=== PATIENT | male | born 1950 | race American Indian/Alaskan Native ===

== ENCOUNTER 2017-02-05 10:45 | Day surgery (SDC) | payer MEDICARE, BC, OTHER ==
[~2017-02-05 10:45] MED LIST: Lactated Ringers 1,000 ML IV SCH
--- NOTE | 2017-02-05 11:28 | PCM.PREANE ---
Preanesthetic Assessment - Anesthesia/Transfusion/Family Hx Anesthesia History: Prior Anesthesia Reaction Family History of Anesthesia Reaction: No Transfusion History: Prior Transfusion Without Reaction Intubation History: Unknown - Review of Systems General: No Symptoms Pulmonary: No Symptoms Cardiovascular: No Symptoms Gastrointestinal: No Symptoms Neurological: No Symptoms Other: Reports: None - Physical Assessment O2 Sat by Pulse Oximetry: 96 Respiratory Rate: 16 Vital Signs: Last Vital Signs Temp 36.2 C 02/05/17 11:02 Pulse 91 02/05/17 11:02 Resp 16 02/05/17 11:02 BP 126/84 02/05/17 11:02 Pulse Ox 96 02/05/17 11:02 Height: 1.65 m Weight: 88.451 kg ASA Class: 2 Mental Status: Alert & Oriented x3 Airway Class: Mallampati = 2 Dentition: Reports: Bridge (2 teeth upper front) Thyro-Mental Finger Breadths: 3 Mouth Opening Finger Breadths: 2 ROM/Head Extension: Full Lungs: Clear to Auscultation, Normal Respiratory Effort Cardiovascular: Regular Rate, Regular Rhythm - Allergies Allergies/Adverse Reactions: Allergies Allergy/AdvReac Type Severity Reaction Status Date / Time No Known Allergies Allergy Verified 02/03/17 11:08 - Blood Blood Available: No - Anesthesia Plan Pre-Op Medication Ordered: None - Acknowledgements Anesthesia Type Planned: MAC Pt an Appropriate Candidate for the Planned Anesthesia: Yes Alternatives and Risks of Anesthesia Discussed w Pt/Guardian: Yes Pt/Guardian Understands and Agrees with Anesthesia Plan: Yes PreAnesthesia Questionnaire HEENT History: Reports: Glaucoma Other HEENT History: wears glasses, has 2 upper permanent false teeth Cardiovascular History: Reports: Afib, High Cholesterol, Hypertension, HI, Pacemaker (replaced about a year and a half) Other Cardiovascular History: HI in 1999, no current chest pain, SOB...recently taking Lasix for leg swelling Other Respiratory History: states has had lungs drained before Gastrointestinal History: Reports: GERD Endocrine/Metabolic History: Reports: Hypothyroidism, Obesity/BMI 30+ Hematologic History: Reports: Blood Transfusion(s) - Infectious Disease History Infectious Disease History: Reports: Hepatitis C - Past Surgical History Head Surgeries/Procedures: Reports: None Cardiovascular Surgical History: Reports: AICD, Coronary Artery Bypass, Pacer Other Cardiovascular Surgeries/Procedures: CABG, 4 vessel in late , has implanted pacemaker/defibrillator placed 10 years ago (replaced a year and a half ago) - SUBSTANCE USE Smoking Status *Q: Current Every Day Smoker Tobacco Use Within Last Twelve Months: Cigarettes Days Per Week of Alcohol Use: 0 Recreational Drug Use History: No - HOME MEDS Home Medications: Home Meds Carvedilol 25 mg PO BID 08/07/13 [History] Diltiazem [Tiazac] 180 mg PO BID 08/07/13 [History] Levothyroxine [Sythroid] 100 mcg PO DAILY 08/07/13 [History] Omeprazole 20 mg PO BID 08/23/14 [History] atorvaSTATin [Lipitor] 20 mg PO DAILY 08/23/14 [History] Nitroglycerin [Nitrostat] 0.4 mg SL Q5M PRN 05/06/15 [History] Warfarin [Coumadin] 0 mg PO DAILY 05/06/15 [History] Fluticasone Propionate [Flonase Allergy Relief] 2 spray NASBOTH ASDIRECTED PRN 02/03/17 [History] Furosemide 40 mg PO ASDIRECTED 02/03/17 [History] Ipratropium/Albuterol Sulfate [Combivent Respimat Inhal [place]] 1 puff INH QID PRN 02/03/17 [History] Latanoprost [Xalatan 0.005% Ophth Soln] 1 drop EYEBOTH DAILY 02/03/17 [History] Potassium Chloride 8 meq PO DAILY 02/03/17 [History] Zolpidem [Ambien] 10 mg PO BEDTIME PRN 02/03/17 [History] - CURRENT (IN HOUSE) MEDS Current Meds: Current Medications Lactated Ringer's (Ringers, Lactated) 1,000 mls @ 125 mls/hr IV ASDIRECTED ARABELLA Last Admin: 02/05/17 11:09 Dose: 125 mls/hr
[2017-02-05] MEDS ORDERED: Lidocaine 2% 5 ML SDV ONE (11:31)
[2017-02-05] MEDS ORDERED: Midazolam 1 MG/ML 2 ML SDV ONE (11:32)
[2017-02-05] MEDS ORDERED: fentaNYL 100 MCG/2 ML SDV ONE (11:32)
[2017-02-05] MEDS ORDERED: Propofol 200 MG/20 ML SDV ONE ×2 (11:32→12:24)
[2017-02-05] MEDS ORDERED: ePHEDrine 50 MG/ML SDV ONE (12:25)
[2017-02-05] MEDS ORDERED: Lactated Ringers 1,000 ML IV SCH (12:45)
--- NOTE | 2017-02-05 12:48 | PCM.OPNOTE ---
- General Post-Op/Procedure Note Date of Surgery/Procedure: 02/05/17 Operative Procedure(s): Esophagogastroduodenoscopy with biopsy. Colonoscopy with cold ascending colon polypectomy. Pre Op Diagnosis: Hemoccult-positive stool. Personal history of colon polyps. Post-Op Diagnosis: Acute gastritis. Ascending colon polyp. Anesthesia Technique: MAC (ASA III) Primary Surgeon: Jim Dumont Condition: Good Free Text/Narrative:: Dictation [id number] CPT CODE [id number]
--- NOTE | 2017-02-05 13:12 | PCM.POSTAN ---
POST ANESTHESIA ASSESSMENT - MENTAL STATUS Mental Status: Alert - VITAL SIGNS Pulse Rate: 70 SaO2: 98 Resp Rate: 16 Blood Pressure: 110/72 - RESPIRATORY Respiratory Status: Respiratory Rate WNL - CARDIOVASCULAR CV Status: Pulse Rate WNL - GASTROINTESTINAL GI Status: No Symptoms - POST OP HYDRATION Hydration Status: Adequate & Stable
--- NOTE | 2017-02-05 13:27 | OR ---
SURGEON: Jim Dumont M.D. DATE OF PROCEDURE: 02/05/2017 OPERATION PERFORMED: Esophagogastroduodenoscopy with biopsy. ANESTHESIA: MAC. ASA CLASSIFICATION: III. PREOPERATIVE DIAGNOSIS: Hemoccult positive stool. POSTOPERATIVE DIAGNOSIS: Acute gastritis without ulceration. DESCRIPTION OF PROCEDURE: The patient was taken to the endoscopy room and positioned on the endoscopy table in the supine position. Time-out was called for appropriate identification of the patient and procedure. Monitored anesthesia care was provided. The bite-block was placed between the patient's teeth. The gastroscope was inserted into the mouth and advanced without difficulty through the esophagus and stomach into the duodenum where examination was carried out in a retrograde fashion. The duodenum shows no acute inflammatory changes or ulcerations. The stomach does show fairly significant acute gastritis. No ulcerations were seen. Antral biopsies were obtained to look for the presence of Helicobacter pylori. The gastroscope was retroflexed to visualize the proximal stomach. I did not see any acute ulcerations. No tumors were identified. The gastroscope was then straightened and slowly withdrawn. The greater and lesser curvatures were carefully visualized and no ulcerations were noted. The GE junction was well defined. The patient does have a small hiatal hernia. No acute erosions were noted within the esophagus. The esophagus demonstrated good contractility. The vocal cords were visualized as the scope was withdrawn and noted to move symmetrically. The gastroscope was then removed with the patient having tolerated the procedure well. Following colonoscopy, he was taken to recovery room in stable condition. ERWIN / CAITLIN /[id number]
[2017-02-05 13:30] VITALS: BP 119/84
--- NOTE | 2017-02-05 13:31 | PCM48HPAN ---
Post Anesthesia Note - EVALUATION WITHIN 48HRS OF ANESTHETIC Vital Signs in Normal Range: Yes Patient Participated in Evaluation: Yes Respiratory Function Stable: Yes Airway Patent: Yes Cardiovascular Function Stable: Yes Hydration Status Stable: Yes Pain Control Satisfactory: Yes Nausea and Vomiting Control Satisfactory: Yes Mental Status Recovered: Yes
--- NOTE | 2017-02-05 13:37 | OR ---
SURGEON: Jim Dumont M.D. DATE OF PROCEDURE: 02/05/2017 OPERATION PERFORMED: Colonoscopy with cold ascending colon polypectomy. ANESTHESIA: MAC. ASA CLASSIFICATION: III. PREOPERATIVE DIAGNOSIS: Hemoccult positive stool. POSTOPERATIVE DIAGNOSIS: Ascending colon polyp. DESCRIPTION OF PROCEDURE: With the patient having completed esophagogastroduodenoscopy with biopsy, he was now positioned in the left lateral decubitus position. The colonoscope was inserted into the rectum and advanced with minimal difficulty to the cecum. The cecum was identified by internal landmarks and external pressure. The colonoscope was retroflexed to visualize the ascending colon from below, then straightened and slowly withdrawn. One polyp was encountered in the ascending colon and this was removed with multiple bites of the cold biopsy forceps. The remainder of the ascending colon, hepatic flexure, transverse colon, splenic flexure, descending colon, sigmoid colon, and rectum were well visualized. No other tumors or polyps were identified. There were no angiodysplastic changes. No evidence of inflammatory bowel disease. The colonoscope was withdrawn to the rectum and retroflexed to visualize the anal orifice from above. No tumors or polyps were seen, and there were no acute hemorrhoidal changes. The colonoscope was then straightened, the rectum aspirated, and the colonoscope removed. The patient tolerated the procedure well and was taken to recovery room in stable condition. ERWIN TUCKER /[id number]
== END 2017-02-05 13:35 | disposition home or self-care (01) ==
LOC: MW.SDS 10:45
PROVIDERS: ATTEND Surgery
DX: K29.50 Unspecified chronic gastritis without bleeding (principal); D12.2 Benign neoplasm of ascending colon; K44.9 Diaphragmatic hernia without obstruction or gangrene; M19.90 Unspecified osteoarthritis, unspecified site; I25.2 Old myocardial infarction; I25.10 Atherosclerotic heart disease of native coronary artery without angina pectoris; I10 Essential (primary) hypertension; K21.9 Gastro-esophageal reflux disease without esophagitis; F17.210 Nicotine dependence, cigarettes, uncomplicated; I48.91 Unspecified atrial fibrillation; E78.00 Pure hypercholesterolemia, unspecified; E03.9 Hypothyroidism, unspecified; E66.9 Obesity, unspecified; Z79.01 Long term (current) use of anticoagulants; Z79.899 Other long term (current) drug therapy; Z95.1 Presence of aortocoronary bypass graft; Z95.810 Presence of automatic (implantable) cardiac defibrillator; Z68.32 Body mass index [BMI] 32.0-32.9, adult
CPT/HCPCS: 43239; 45380; 88305; 88312; J2250; J3010; J7120; 00810; J2704

== ENCOUNTER 2017-10-27 21:39 | Emergency (ER) | payer MEDICARE, BC, OTHER ==
[2017-10-27] MEDS ORDERED: Sodium Chloride 0.9% 2.5 ML Syringe FLUSH PRN (22:00)
[2017-10-27] MEDS ORDERED: Sodium Chloride 0.9% 10 ML Syringe FLUSH PRN (22:00)
--- NOTE | 2017-10-27 22:07 | EDM.PDOC ---
ED HPI GENERAL MEDICAL PROBLEM - General Chief Complaint: Neuro Symptoms/Deficits Stated Complaint: NUMB ARMS/FACE Time Seen by Provider: 10/27/17 21:44 - History of Present Illness INITIAL COMMENTS - FREE TEXT/NARRATIVE: HISTORY AND PHYSICAL: History of present illness: The patient is a 67-year-old male with a history of coronary artery disease with CABG in 1999, ICD placement for A. fib,hypercholesterolemia hypothyroidism pulmonary disease presents with complaints of a tingling-like sensation from mid humerus to hands bilaterally and around his cheeks and mouth for the last 4- 5 days. He says it is not pins and needles and it is not complete numbness but it is an odd sensation that is discomforting but not painful. It is bilateral every time it occurs. He says it has been episodic for the last 4-5 days but has been constant since Wednesday, over 24 hours. He has no weakness in his extremities and there is no involvement of his shoulders neck trunk or legs. The patient follows with Dr. Elena of cardiology in [place] and Dr. Clifton at [facility]. He has not spoken to either of these providers about the symptoms. The patient denies any chest pain and does say he has intermittent shortness of breath that is not new or different. He's had no fevers chills abdominal pain vomiting urinary complaints or diarrhea. Patient tells me he intermittently will have lower extremity swelling and he takes medication and it improves. He currently has no discomfort or swelling in his legs. He did not complain of any swelling in his upper extremities and has no neck or back pain. When the patient has had these episodes in the past as well as this evening he doesn't feel lightheaded or dizzy he has no chest discomfort or shortness of breath no head neck or back pain and no other associated symptoms. The patient has not had any recent head or neck trauma Review of systems: As per history of present illness and below otherwise all systems reviewed and negative. Past medical history: As per history of present illness and as reviewed below otherwise noncontributory. Surgical history: As per history of present illness and as reviewed below otherwise noncontributory. Social history: No reported history of drug or alcohol abuse. Family history: As per history of present illness and as reviewed below otherwise noncontributory. Physical exam: General: Well-developed well-nourished man who is nontoxic and speaking clearly and easily in the ED. He ambulated into the ED without assistance. Vital signs are noted by me HEENT: Atraumatic, normocephalic, pupils reactive, negative for conjunctival pallor or scleral icterus, mucous membranes moist, throat clear, neck supple, nontender, trachea midline. Lungs: Clear to auscultation with some coarse breath sounds in the bases bilaterally no wheezing or stridor or work of breathing, breath sounds equal bilaterally, chest nontender. Heart: S1S2, regular rate and rhythm no overt murmurs and ICD is noted in the left upper chest wall. Abdomen: Soft, nondistended, nontender. Negative for masses or hepatosplenomegaly. NABS Pelvis: Stable nontender. Genitourinary: Deferred. Rectal: Deferred. Extremities: Atraumatic, negative for cords or calf pain. Neurovascular unremarkable. No pedal edema or leg asymmetry Neuro: Awake, alert, oriented. Cranial nerves II through XII unremarkable. Cerebellum unremarkable. Motor and sensory unremarkable throughout. Exam nonfocal. Skin: No diaphoresis no evidence of any overt rashes or lesions and turgor is normal Diagnostics: EKG CBC CMP INR troponin magnesium level UA chest x-ray CT scan of the head Therapeutics: IV O2 monitor He is aware of all testing results as his at bedside and he was offered observation admission and declines. He was strongly advised to follow-up with his provider at [facility] and also to hold the next dose of Coumadin and discuss with his provider further dose adjusting and or follow-up. He is advised on reasons to return to the ED. Impression: Nonspecific paresthesias of bilateral upper extremities and midface, subacute, etiology unclear Definitive disposition and diagnosis as appropriate pending reevaluation and review of above. Treatments IN HOUSE CRA: Reports: EKG - Related Data Allergies Allergy/AdvReac Type Severity Reaction Status Date / Time No Known Allergies Allergy Verified 10/27/17 21:50 Home Meds: Home Meds Carvedilol 25 mg PO BID 08/07/13 [History] Diltiazem [Tiazac] 180 mg PO BID 08/07/13 [History] Levothyroxine [Sythroid] 100 mcg PO DAILY 08/07/13 [History] Omeprazole 20 mg PO BID 08/23/14 [History] atorvaSTATin [Lipitor] 20 mg PO DAILY 08/23/14 [History] Nitroglycerin [Nitrostat] 0.4 mg SL Q5M PRN 05/06/15 [History] Warfarin [Coumadin] 0 mg PO DAILY 05/06/15 [History] Fluticasone Propionate [Flonase Allergy Relief] 2 spray NASBOTH ASDIRECTED PRN 02/03/17 [History] Furosemide 40 mg PO ASDIRECTED 02/03/17 [History] Ipratropium/Albuterol Sulfate [Combivent Respimat Inhal [place]] 1 puff INH QID PRN 02/03/17 [History] Latanoprost [Xalatan 0.005% Ophth Soln] 1 drop EYEBOTH DAILY 02/03/17 [History] Potassium Chloride 8 meq PO DAILY 02/03/17 [History] Zolpidem [Ambien] 10 mg PO BEDTIME PRN 02/03/17 [History] Past Medical History HEENT History: Reports: Glaucoma Other HEENT History: wears glasses, has 2 upper permanent false teeth Cardiovascular History: Reports: Afib, High Cholesterol, Hypertension, [place], Pacemaker Other Cardiovascular History: heart attack in 1998 Respiratory History: Reports: COPD Other Respiratory History: on inhaler Gastrointestinal History: Reports: GERD Endocrine/Metabolic History: Reports: Hypothyroidism, Obesity/BMI 30+ Hematologic History: Reports: Blood Transfusion(s) - Infectious Disease History Infectious Disease History: Reports: Hepatitis C - Past Surgical History Head Surgeries/Procedures: Reports: None HEENT Surgical History: Reports: None Cardiovascular Surgical History: Reports: AICD, Coronary Artery Bypass, Pacer Other Cardiovascular Surgeries/Procedures: CABG, 4 vessel in late , has implanted pacemaker/defibrillator placed 2015 (revised 3x-last revised in 2009) Respiratory Surgical History: Reports: None GI Surgical History: Reports: None Endocrine Surgical History: Reports: None Social & Family History - Family History Family Medical History: Noncontributory Cardiac: Reports: Hypertension, [place], Other (See Below) Other Cardiac Family History: heart disease Endocrine/Metabolic: Reports: Diabetes, type II - Tobacco Use Smoking Status *Q: Current Some Day Smoker Years of Tobacco use: 15 Packs/Tins Daily: 0.1 - Caffeine Use Caffeine Use: Reports: None - Recreational Drug Use Recreational Drug Use: No ED ROS GENERAL - Review of Systems Review Of Systems: ROS reveals no pertinent complaints other than HPI. ED EXAM, GENERAL - Physical Exam Exam: See Below (See dictation) Course - Vital Signs Last Recorded V/S: Last Vital Signs Temp 36.4 C 10/27/17 21:46 Pulse 67 10/27/17 21:46 Resp 20 10/27/17 21:46 BP 130/81 10/27/17 21:46 Pulse Ox 96 10/27/17 21:46 - Orders/Labs/Meds Orders: Active Orders 24 hr Category Date Time Status Cardiac Monitoring [RC] . DIRECTED Care 10/27/17 21:57 Active EKG Documentation Completion [RC] STAT Care 10/27/17 21:57 Active Oxygen Therapy, ED [RC] ASDIRECTED Care 10/27/17 21:57 Active Pulse Oximetry [RC] ASDIRECTED Care 10/27/17 21:57 Active Chest 1V Frontal [CR] Stat Exams 10/27/17 22:00 Taken Head wo Cont [CT] Stat Exams 10/27/17 22:00 Taken UA W/MICROSCOPIC [URIN] Stat Lab 10/27/17 22:15 Ordered Sodium Chloride 0.9% [Saline Flush] Med 10/27/17 22:00 Active 10 ml FLUSH ASDIRECTED PRN Sodium Chloride 0.9% [Saline Flush] Med 10/27/17 22:00 Active 2.5 ml FLUSH ASDIRECTED PRN Saline Lock Insert [OM.PC] Stat Oth 10/27/17 21:57 Ordered Medication Orders Sodium Chloride (Saline Flush) 10 ml FLUSH ASDIRECTED PRN PRN Reason: Keep Vein Open Sodium Chloride (Saline Flush) 2.5 ml FLUSH ASDIRECTED PRN PRN Reason: Keep Vein Open Labs: Laboratory Tests 10/27/17 10/27/17 10/27/17 Range/Units 22:10 22:10 22:10 WBC 8.06 (4.0-11.0) K/uL RBC 4.98 (4.50-5.90) M/uL Hgb 15.4 (13.0-17.0) g/dL Hct 43.5 (38.0-50.0) % MCV 87.3 (80.0-98.0) fL MCH 30.9 (27.0-32.0) pg MCHC 35.4 (31.0-37.0) g/dL RDW Std Deviation 42.1 (28.0-62.0) fl RDW Coeff of Jenna 13 (11.0-15.0) % Plt Count 123 L (150-400) K/uL MPV 10.00 (7.40-12.00) fL Neut % (Auto) 52.8 (48.0-80.0) % Lymph % (Auto) 33.3 (16.0-40.0) % [place] % (Auto) 10.7 (0.0-15.0) % Eos % (Auto) 3.0 (0.0-7.0) % Baso % (Auto) 0.2 (0.0-1.5) % Neut # (Auto) 4.3 (1.4-5.7) K/uL Lymph # (Auto) 2.7 H (0.6-2.4) K/uL [place]ruff # (Auto) 0.9 H (0.0-0.8) K/uL Eos # (Auto) 0.2 (0.0-0.7) K/uL Baso # (Auto) 0.0 (0.0-0.1) K/uL Nucleated RBC % 0.0 /100WBC Nucleated RBCs # 0 K/uL INR 6.02 Sodium 136 (136-148) mmol/L Potassium 4.1 (3.5-5.1) mmol/L Chloride 102 (98-107) mmol/L Carbon Dioxide 26.2 (21.0-32.0) mmol/L BUN 15 (7.0-18.0) mg/dL Creatinine 1.2 (0.8-1.3) mg/dL Est Cr Clr Drug Dosing TNP Estimated GFR (MDRD) > 60.0 ml/min Glucose 102 (74-106) mg/dL Calcium 8.7 (8.5-10.1) mg/dL Magnesium 1.8 (1.8-2.4) mg/dL Total Bilirubin 0.4 (0.2-1.0) mg/dL AST 25 (15-37) IU/L ALT 28 (14-63) IU/L Alkaline Phosphatase 83 (46-116) U/L Troponin I < 0.050 (0.000-0.056) ng/mL Total Protein 7.3 (6.4-8.2) g/dL Albumin 3.3 L (3.4-5.0) g/dL Globulin 4.0 H (2.0-3.5) g/dL Albumin/Globulin Ratio 0.8 L (1.3-2.8) Urine Color Urine Appearance Urine pH (5.0-8.0) Ur Specific [place] (1.001-1.035) Urine Protein (NEGATIVE) mg/dL Urine Glucose (UA) (NEGATIVE) mg/dL Urine Ketones (NEGATIVE) mg/dL Urine Occult Blood (NEGATIVE) Urine Nitrite (NEGATIVE) Urine Bilirubin (NEGATIVE) Urine Urobilinogen (<2.0) EU/dL Ur Leukocyte Esterase (NEGATIVE) Urine RBC (0-2/HPF) Urine WBC (0-5/HPF) Ur Epithelial Cells (NONE-FEW) Urine Bacteria (NEGATIVE) Urine Mucus (NONE-MOD) 10/27/17 Range/Units 22:15 WBC (4.0-11.0) K/uL RBC (4.50-5.90) M/uL Hgb (13.0-17.0) g/dL Hct (38.0-50.0) % MCV (80.0-98.0) fL MCH (27.0-32.0) pg MCHC (31.0-37.0) g/dL RDW Std Deviation (28.0-62.0) fl RDW Coeff of Jenna (11.0-15.0) % Plt Count (150-400) K/uL MPV (7.40-12.00) fL Neut % (Auto) (48.0-80.0) % Lymph % (Auto) (16.0-40.0) % [place] % (Auto) (0.0-15.0) % Eos % (Auto) (0.0-7.0) % Baso % (Auto) (0.0-1.5) % Neut # (Auto) (1.4-5.7) K/uL Lymph # (Auto) (0.6-2.4) K/uL [place] # (Auto) (0.0-0.8) K/uL Eos # (Auto) (0.0-0.7) K/uL Baso # (Auto) (0.0-0.1) K/uL Nucleated RBC % /100WBC Nucleated RBCs # K/uL INR Sodium (136-148) mmol/L Potassium (3.5-5.1) mmol/L Chloride (98-107) mmol/L Carbon Dioxide (21.0-32.0) mmol/L BUN (7.0-18.0) mg/dL Creatinine (0.8-1.3) mg/dL Est Cr Clr Drug Dosing Estimated GFR (MDRD) ml/min Glucose (74-106) mg/dL Calcium (8.5-10.1) mg/dL Magnesium (1.8-2.4) mg/dL Total Bilirubin (0.2-1.0) mg/dL AST (15-37) IU/L ALT (14-63) IU/L Alkaline Phosphatase (46-116) U/L Troponin I (0.000-0.056) ng/mL Total Protein (6.4-8.2) g/dL Albumin (3.4-5.0) g/dL Globulin (2.0-3.5) g/dL Albumin/Globulin Ratio (1.3-2.8) Urine Color YELLOW Urine Appearance CLEAR Urine pH 6.0 (5.0-8.0) Ur Specific [place] >= 1.030 (1.001-1.035) Urine Protein NEGATIVE (NEGATIVE) mg/dL Urine Glucose (UA) NEGATIVE (NEGATIVE) mg/dL Urine Ketones NEGATIVE (NEGATIVE) mg/dL Urine Occult Blood NEGATIVE (NEGATIVE) Urine Nitrite NEGATIVE (NEGATIVE) Urine Bilirubin NEGATIVE (NEGATIVE) Urine Urobilinogen 1.0 (<2.0) EU/dL Ur Leukocyte Esterase NEGATIVE (NEGATIVE) Urine RBC 0-1 (0-2/HPF) Urine WBC 0-1 (0-5/HPF) Ur Epithelial Cells RARE (NONE-FEW) Urine Bacteria RARE (NEGATIVE) Urine Mucus LIGHT (NONE-MOD) Meds: Medications Generic Name Dose Route Start Last Admin Trade Name Freq PRN Reason Stop Dose Admin Sodium Chloride 10 ml 10/27/17 22:00 Saline Flush FLUSH ASDIRECTED PRN Keep Vein Open Sodium Chloride 2.5 ml 10/27/17 22:00 Saline Flush FLUSH ASDIRECTED PRN Keep Vein Open Departure - Departure Time of Disposition: 23:14 Disposition: Home, Self-Care 01 Condition: Good Clinical Impression: Paresthesias - Discharge Information Referrals: PCP,None [Primary Care Provider] - Forms: ED Department Discharge Additional Instructions: The following information is given to patients seen in the emergency department who are being discharged to home. This information is to outline your options for follow-up care. We provide all patients seen in our emergency department with a follow-up referral. The need for follow-up, as well as the timing and circumstances, are variable depending upon the specifics of your emergency department visit. If you don't have a primary care physician on staff, we will provide you with a referral. We always advise you to contact your personal physician following an emergency department visit to inform them of the circumstance of the visit and for follow-up with them and/or the need for any referrals to a consulting specialist. The emergency department will also refer you to a specialist when appropriate. This referral assures that you have the opportunity for followup care with a specialist. All of these measure are taken in an effort to provide you with optimal care, which includes your followup. Under all circumstances we always encourage you to contact your private physician who remains a resource for coordinating your care. When calling for followup care, please make the office aware that this follow-up is from your recent emergency room visit. If for any reason you are refused follow-up, please contact the [facility] emergency department at and ask to speak to the emergency department charge nurse. [facility] Primary care- Internal Medicine and Family [address] [address] Please call and follow-up with Dr. Clifton in the clinic as we discussed tomorrow for further testing and evaluation and hold your next dose of Coumadin. Bunny's discussed with Dr. Clifton further dosing adjustments of your Coumadin as your level is 6.02. Return to ER as needed and as discussed. - My Orders Last 24 Hours: My Active Orders 10/27/17 21:57 Cardiac Monitoring [RC] . DIRECTED EKG Documentation Completion [RC] STAT Oxygen Therapy, ED [RC] ASDIRECTED Pulse Oximetry [RC] ASDIRECTED Saline Lock Insert [OM.PC] Stat 10/27/17 22:00 Chest 1V Frontal [CR] Stat Head wo Cont [CT] Stat Sodium Chloride 0.9% [Saline Flush] 10 ml FLUSH ASDIRECTED PRN Sodium Chloride 0.9% [Saline Flush] 2.5 ml FLUSH ASDIRECTED PRN 10/27/17 22:15 UA W/MICROSCOPIC [URIN] Stat - Assessment/Plan Last 24 Hours: My Active Orders 10/27/17 21:57 Cardiac Monitoring [RC] . DIRECTED EKG Documentation Completion [RC] STAT Oxygen Therapy, ED [RC] ASDIRECTED Pulse Oximetry [RC] ASDIRECTED Saline Lock Insert [OM.PC] Stat 10/27/17 22:00 Chest 1V Frontal [CR] Stat Head wo Cont [CT] Stat Sodium Chloride 0.9% [Saline Flush] 10 ml FLUSH ASDIRECTED PRN Sodium Chloride 0.9% [Saline Flush] 2.5 ml FLUSH ASDIRECTED PRN 10/27/17 22:15 UA W/MICROSCOPIC [URIN] Stat
[2017-10-27 22:38] LABS: CHLORIDE,CL 102 mmol/L (98-107); SODIUM,NA 136 mmol/L (136-148)
[2017-10-27 23:35] VITALS: BP 105/74
--- NOTE | 2017-10-28 09:47 | CT ---
EXAM DATE: 10/27/17 PATIENT'S AGE: 67 Patient: NILO PIERRE Facility: [place], [place] Site . Site : 1950 Study: CT Head wo cont [id number]/18/2018 10:26:53 PM Ordering Physician: Tammy Oro Final Report: INDICATION: Patient states bilateral arm and facial tingling, numbness with shortness of breath TECHNIQUE: CT Head without i.v. contrast. CONTRAST: None COMPARISON: 10/08/2009 FINDINGS: CSF spaces: Unremarkable for age. Brain: No evidence of mass, acute infarction or hemorrhage is seen. No mass- effect or midline shift is seen. Mild diffuse cortical atrophy is noted. The brain parenchyma is otherwise normal in appearance with preservation of the dacosta -white matter junction. Calvarium: The visualized paranasal sinuses are well aerated. The mastoid air cells are clear. The visualized orbits are grossly unremarkable. The calvarium is unremarkable in appearance with no fractures identified. IMPRESSION: 1. No evidence of acute infarction, intracranial hemorrhage, or mass-effect seen. Please note that all CT scans at this facility use dose modulation, iterative reconstruction, and/or weight-based dosing when appropriate to reduce radiation dose to as low as reasonably achievable. Dictated by: De Estrada MD @ 10/27/2017 22:29:31 (Electronic Signature) Report Signed by Proxy. [facility] CENTERJud
--- NOTE | 2017-10-28 09:48 | CR ---
EXAM DATE: 10/27/17 PATIENT'S AGE: 67 Patient: NILO PIERRE Facility: [place], [place] Site . Site : 1950 Study: XRay Chest [id number]/18/2018 10:29:44 PM Ordering Physician: Tammy Oro Final Report: INDICATION: Bilateral upper and lower extremity numbness, tingling, some shortness of breath TECHNIQUE: Chest radiograph 1 view COMPARISON: 05/06/2015 FINDINGS: Mediastinum: Previous median sternotomy and coronary artery bypass grafting ( CABG) noted. The heart silhouette is normal in size and morphology. There is a left cardiac pacer present with leads in the right atrium and right ventricle. Lungs: Both lungs are unremarkable in appearance. No sign of pleural effusion seen. No pneumothorax is identified. Bones and soft tissue: Unremarkable for age. IMPRESSION: 1. No acute cardiopulmonary disease is seen. Dictated by De Estrada MD @ 10/27/2017 10:35:13 PM Dictated by: De Estrada MD @ 10/27/2017 22:35:15 (Electronic Signature) Report Signed by Proxy. COOKIE
== END 2017-10-27 23:36 | disposition home or self-care (01) ==
LOC: MW.ED 21:39
DX: R20.2 Paresthesia of skin (principal); I10 Essential (primary) hypertension; E03.9 Hypothyroidism, unspecified; J44.9 Chronic obstructive pulmonary disease, unspecified; I48.91 Unspecified atrial fibrillation; I25.2 Old myocardial infarction; F17.210 Nicotine dependence, cigarettes, uncomplicated; I25.10 Atherosclerotic heart disease of native coronary artery without angina pectoris; Z95.1 Presence of aortocoronary bypass graft; Z79.01 Long term (current) use of anticoagulants; Z79.899 Other long term (current) drug therapy
CPT/HCPCS: 36415; 70450; 70450-26; 71045; 71045-26; 80053; 81001; 83735; 84484; 85025; 85610; 93005; 99285-25

== ENCOUNTER 2019-01-27 21:51 | Emergency (ER) | payer MEDICARE, OTHER ==
[2019-01-27] MEDS ORDERED: Sodium Chloride 0.9% 10 ML Syringe FLUSH PRN (22:07)
[2019-01-27] MEDS ORDERED: Sodium Chloride 0.9% 2.5 ML Syringe FLUSH PRN (22:07)
--- NOTE | 2019-01-27 22:19 | EDM.PDOC ---
ED HPI GENERAL MEDICAL PROBLEM - General Chief Complaint: General Stated Complaint: PAIN IN RIGHT ARM Time Seen by Provider: 01/27/19 21:58 - History of Present Illness INITIAL COMMENTS - FREE TEXT/NARRATIVE: HISTORY AND PHYSICAL: History of present illness: Patient is 69-year-old white male with extensive cardiac history including bypass and cardiac pacemaker presenting concern of intermittent paresthesia to the palmar surface of his left hand he denies any other numbness weakness or other concern he does not have any paresthesia on arrival here this is been since yesterday. Pain palpitations shortness of breath nausea vomiting or fever / chills Review of systems: As per history of present illness and below otherwise all systems reviewed and negative. Past medical history: As per history of present illness and as reviewed below otherwise noncontributory. Surgical history: As per history of present illness and as reviewed below otherwise noncontributory. Social history: No reported history of drug or alcohol abuse. Family history: As per history of present illness and as reviewed below otherwise noncontributory. Physical exam: HEENT: Atraumatic, normocephalic, pupils reactive, negative for conjunctival pallor or scleral icterus, mucous membranes moist, throat clear, neck supple, nontender, trachea midline. Lungs: Clear to auscultation, breath sounds equal bilaterally, chest nontender. Heart: S1S2, regular, negative for clicks, rubs, or JVD. Abdomen: Soft, nondistended, nontender. Negative for masses or hepatosplenomegaly. Negative for costovertebral tenderness. Pelvis: Stable nontender. Genitourinary: Deferred. Rectal: Deferred. Extremities: Atraumatic, negative for cords or calf pain. Neurovascular unremarkable. Neuro: Awake, alert, oriented. Cranial nerves II through XII unremarkable. Cerebellum unremarkable. Motor and sensory unremarkable throughout. Exam nonfocal. Diagnostics: CBC CMP troponin PT/INR chest x-ray EKG CT brain Therapeutics: IV O2 monitor Impression: #1 paresthesia left upper extremity resolved etiology to be determined #2 history coronary artery disease with bypass surgery #3 history of pacemaker Definitive disposition and diagnosis as appropriate pending reevaluation and review of above. left arm Pain Score (Numeric/FACES): 1 - Related Data Allergies Allergy/AdvReac Type Severity Reaction Status Date / Time No Known Allergies Allergy Verified 01/27/19 21:54 Home Meds: Home Meds Carvedilol 25 mg PO BID 08/07/13 [History] Diltiazem [Tiazac] 180 mg PO BID 08/07/13 [History] Levothyroxine [Sythroid] 100 mcg PO DAILY 08/07/13 [History] Omeprazole 20 mg PO DAILY 08/23/14 [History] atorvaSTATin [Lipitor] 20 mg PO DAILY 08/23/14 [History] Nitroglycerin [Nitrostat] 0.4 mg SL Q5M PRN 05/06/15 [History] Warfarin [Coumadin] 0 mg PO DAILY 05/06/15 [History] Fluticasone Propionate [Flonase Allergy Relief] 2 spray NASBOTH ASDIRECTED PRN 02/03/17 [History] Furosemide 40 mg PO ASDIRECTED 02/03/17 [History] Ipratropium/Albuterol Sulfate [Combivent Respimat Inhal [place]] 1 puff INH QID PRN 02/03/17 [History] Latanoprost [Xalatan 0.005% Oph Soln] 1 drop EYEBOTH DAILY 02/03/17 [History] Potassium Chloride 8 meq PO DAILY 02/03/17 [History] Zolpidem [Ambien] 10 mg PO BEDTIME PRN 02/03/17 [History] Bumetanide 1 mg PO ASDIRECTED 01/27/19 [History] Mirtazapine [Remeron] 30 mg PO BEDTIME 01/27/19 [History] Past Medical History HEENT History: Reports: Glaucoma Other HEENT History: wears glasses, has 2 upper permanent false teeth Cardiovascular History: Reports: Afib, High Cholesterol, Hypertension, NH, Pacemaker Other Cardiovascular History: heart attack in 1998 Respiratory History: Reports: COPD Other Respiratory History: on inhaler Gastrointestinal History: Reports: GERD Endocrine/Metabolic History: Reports: Hypothyroidism, Obesity/BMI 30+ Hematologic History: Reports: Blood Transfusion(s) - Infectious Disease History Infectious Disease History: Reports: Hepatitis C - Past Surgical History Head Surgeries/Procedures: Reports: None HEENT Surgical History: Reports: None Cardiovascular Surgical History: Reports: AICD, Coronary Artery Bypass, Pacer Other Cardiovascular Surgeries/Procedures: CABG, 4 vessel in late , has implanted pacemaker/defibrillator placed 2015 (revised 3x-last revised in 2009) Respiratory Surgical History: Reports: None GI Surgical History: Reports: None Endocrine Surgical History: Reports: None Social & Family History - Family History Family Medical History: Noncontributory Cardiac: Reports: Hypertension, NH, Other (See Below) Other Cardiac Family History: heart disease Endocrine/Metabolic: Reports: Diabetes, type II - Caffeine Use Caffeine Use: Reports: None ED ROS GENERAL - Review of Systems Review Of Systems: ROS reveals no pertinent complaints other than HPI. ED EXAM, GENERAL - Physical Exam Exam: See Below (Dictation) Course - Vital Signs Text/Narrative:: I discussed with patient admission for observation in light of the nondiagnostic test and his presentation patient understands risk-benefit as does his and declined states he'll follow-up with his private doctor for reevaluation and further testing he remains asymptomatic at this time Last Recorded V/S: Last Vital Signs Temp 35.8 C 01/27/19 21:56 Pulse 74 01/27/19 22:18 Resp 14 01/27/19 22:18 BP 126/84 01/27/19 22:18 Pulse Ox 95 01/27/19 22:18 - Orders/Labs/Meds Orders: Active Orders 24 hr Category Date Time Status Sodium Chloride 0.9% [Saline Flush] Med 01/27/19 22:07 Active 10 ml FLUSH ASDIRECTED PRN Sodium Chloride 0.9% [Saline Flush] Med 01/27/19 22:07 Active 2.5 ml FLUSH ASDIRECTED PRN Saline Lock Insert [OM.PC] Stat Oth 01/27/19 22:07 Ordered Medication Orders Sodium Chloride (Saline Flush) 10 ml FLUSH ASDIRECTED PRN PRN Reason: Keep Vein Open Sodium Chloride (Saline Flush) 2.5 ml FLUSH ASDIRECTED PRN PRN Reason: Keep Vein Open Labs: Laboratory Tests 01/27/19 01/27/19 01/27/19 Range/Units 22:00 22:00 22:00 WBC 8.41 (4.0-11.0) K/uL RBC 5.80 (4.50-5.90) M/uL Hgb 18.7 H (13.0-17.0) g/dL Hct 52.0 H (38.0-50.0) % MCV 89.7 (80.0-98.0) fL MCH 32.2 H (27.0-32.0) pg MCHC 36.0 (31.0-37.0) g/dL RDW Std Deviation 44.9 (28.0-62.0) fl RDW Coeff of Jenna 14 (11.0-15.0) % Plt Count 130 L (150-400) K/uL MPV 9.60 (7.40-12.00) fL Neut % (Auto) 50.4 (48.0-80.0) % Lymph % (Auto) 35.6 (16.0-40.0) % [place] % (Auto) 11.4 (0.0-15.0) % Eos % (Auto) 2.4 (0.0-7.0) % Baso % (Auto) 0.2 (0.0-1.5) % Neut # (Auto) 4.2 (1.4-5.7) K/uL Lymph # (Auto) 3.0 H (0.6-2.4) K/uL [place] # (Auto) 1.0 H (0.0-0.8) K/uL Eos # (Auto) 0.2 (0.0-0.7) K/uL Baso # (Auto) 0.0 (0.0-0.1) K/uL Nucleated RBC % 0.0 /100WBC Nucleated RBCs # 0 K/uL INR 3.52 Sodium 139 (136-148) mmol/L Potassium 4.0 (3.5-5.1) mmol/L Chloride 102 (98-107) mmol/L Carbon Dioxide 25.8 (21.0-32.0) mmol/L BUN 16 (7.0-18.0) mg/dL Creatinine 1.0 (0.8-1.3) mg/dL Est Cr Clr Drug Dosing 64.69 mL/min Estimated GFR (MDRD) > 60.0 ml/min Glucose 105 (74-106) mg/dL Calcium 9.0 (8.5-10.1) mg/dL Total Bilirubin 0.6 (0.2-1.0) mg/dL AST 38 H (15-37) IU/L ALT 42 (14-63) IU/L Alkaline Phosphatase 102 (46-116) U/L Troponin I < 0.050 (0.000-0.056) ng/mL Total Protein 8.7 H (6.4-8.2) g/dL Albumin 3.7 (3.4-5.0) g/dL Globulin 5.0 H (2.6-4.0) g/dL Albumin/Globulin Ratio 0.7 L (0.9-1.6) Meds: Medications Generic Name Dose Route Start Last Admin Trade Name Freq PRN Reason Stop Dose Admin Sodium Chloride 10 ml 01/27/19 22:07 Saline Flush FLUSH ASDIRECTED PRN Keep Vein Open Sodium Chloride 2.5 ml 01/27/19 22:07 Saline Flush FLUSH ASDIRECTED PRN Keep Vein Open Departure - Departure Time of Disposition: 23:36 Disposition: Home, Self-Care 01 Condition: Good Clinical Impression: Paresthesia, Encounter for medical screening examination - Discharge Information Referrals: PCP,None [Primary Care Provider] - Forms: ED Department Discharge Additional Instructions: The following information is given to patients seen in the emergency department who are being discharged to home. This information is to outline your options for follow-up care. We provide all patients seen in our emergency department with a follow-up referral. The need for follow-up, as well as the timing and circumstances, are variable depending upon the specifics of your emergency department visit. If you don't have a primary care physician on staff, we will provide you with a referral. We always advise you to contact your personal physician following an emergency department visit to inform them of the circumstance of the visit and for follow-up with them and/or the need for any referrals to a consulting specialist. The emergency department will also refer you to a specialist when appropriate. This referral assures that you have the opportunity for followup care with a specialist. All of these measure are taken in an effort to provide you with optimal care, which includes your followup. Under all circumstances we always encourage you to contact your private physician who remains a resource for coordinating your care. When calling for followup care, please make the office aware that this follow-up is from your recent emergency room visit. If for any reason you are refused follow-up, please contact the [facility] emergency department at and asked to speak to the emergency department charge nurse. Follow-up primary medical doctor as needed as discussed return as needed as discussed - My Orders Last 24 Hours: My Active Orders 01/27/19 22:07 Sodium Chloride 0.9% [Saline Flush] 10 ml FLUSH ASDIRECTED PRN Sodium Chloride 0.9% [Saline Flush] 2.5 ml FLUSH ASDIRECTED PRN Saline Lock Insert [OM.PC] Stat - Assessment/Plan Last 24 Hours: My Active Orders 01/27/19 22:07 Sodium Chloride 0.9% [Saline Flush] 10 ml FLUSH ASDIRECTED PRN Sodium Chloride 0.9% [Saline Flush] 2.5 ml FLUSH ASDIRECTED PRN Saline Lock Insert [OM.PC] Stat
--- NOTE | 2019-01-27 22:40 | CR ---
INDICATION: Stroke TECHNIQUE: Chest 1 view. COMPARISON: 10/27/2017 FINDINGS: Cardiovascular and mediastinum: Stable heart size. Sternotomy wires and left-sided transvenous pacer device.. Mediastinum is within normal limits. Lungs and pleural space: Lungs are clear. No sign of infiltrate or mass. No sign of pleural effusion. No pneumothorax. Bones and soft tissues: No significant findings. IMPRESSION: Unremarkable chest. Stable appearance of the chest compared to 10/27/2017. Dictated by Vikram Alanis MD @ 01/27/2019 10:39:21 PM Dictated by: Vikram Alanis MD @ 01/27/2019 22:39:25 (Electronically Signed)
--- NOTE | 2019-01-27 22:46 | CT ---
INDICATION: Left hand numbness TECHNIQUE: CT head without contrast. COMPARISON: 10/27/2017 FINDINGS: CSF spaces: Within normal limits for age. Brain parenchyma: The dacosta-white differentiation is normal. No sign of mass, hemorrhage, or midline shift. Vertebral artery calcified plaque. Skull base and calvarium: The visualized paranasal sinuses and mastoid air cells demonstrate no acute or significant findings. The visualized orbits are grossly unremarkable. No skull fractures. IMPRESSION: Unremarkable noncontrast head CT. Dictated by Vikram Alanis MD @ 01/27/2019 10:44:26 PM Please note that all CT scans at this facility use dose modulation, iterative reconstruction, and/or weight-based dosing when appropriate to reduce radiation dose to as low as reasonably achievable. Dictated by: Vikram Alanis MD @ 01/27/2019 22:44:31 (Electronically Signed)
[2019-01-27 22:50] LABS: BLOOD UREA NITROGEN,BUN 16 mg/dL (7.0-18.0); CARBON DIOXIDE,CO2 25.8 mmol/L (21.0-32.0); CHLORIDE,CL 102 mmol/L (98-107); GLUCOSE RANDOM 105 mg/dL (74-106); SODIUM,NA 139 mmol/L (136-148)
[2019-01-27 23:43] VITALS: BP 130/81; PULSE 71
== END 2019-01-27 23:45 | disposition home or self-care (01) ==
LOC: MW.ED 21:51
DX: R20.2 Paresthesia of skin (principal); I25.10 Atherosclerotic heart disease of native coronary artery without angina pectoris; I10 Essential (primary) hypertension; E78.00 Pure hypercholesterolemia, unspecified; I25.2 Old myocardial infarction; J44.9 Chronic obstructive pulmonary disease, unspecified; K21.9 Gastro-esophageal reflux disease without esophagitis; E66.9 Obesity, unspecified; H40.9 Unspecified glaucoma; E03.9 Hypothyroidism, unspecified; Z68.29 Body mass index [BMI] 29.0-29.9, adult; Z79.01 Long term (current) use of anticoagulants; Z79.51 Long term (current) use of inhaled steroids; Z79.890 Hormone replacement therapy; Z79.899 Other long term (current) drug therapy; Z95.0 Presence of cardiac pacemaker; Z95.1 Presence of aortocoronary bypass graft
CPT/HCPCS: 36415; 70450; 70450-26; 71045; 71045-26; 80053; 84484; 85025; 85610; 99284-25

== ENCOUNTER 2019-01-29 20:10 | Emergency (ER) | payer MEDICARE, OTHER ==
[2019-01-29] MEDS ORDERED: Sodium Chloride 0.9% 10 ML Syringe FLUSH PRN (20:32)
[2019-01-29] MEDS ORDERED: Sodium Chloride 0.9% 2.5 ML Syringe FLUSH PRN (20:32)
--- NOTE | 2019-01-29 20:32 | EDM.PDOC ---
ED HPI GENERAL MEDICAL PROBLEM - General Chief Complaint: Upper Extremity Injury/Pain Stated Complaint: PAIN IN LEFT ARM Time Seen by Provider: 01/29/19 20:31 Source of Information: Reports: Patient History Limitations: Reports: No Limitations - History of Present Illness INITIAL COMMENTS - FREE TEXT/NARRATIVE: HISTORY AND PHYSICAL: History of present illness: Patient is a 69-year-old male presents to the ED with complaint of left arm pain. He states he was seen two days ago for same symptoms and was worked up for a stroke and discharged home. He states he has a burning sensation in the left arm. 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 He reports some shortness of breath. Denies injury or trauma, chest pain, left jaw pain, nausea, vomiting , abdominal pain, fevers, chills, cough, weakness. Review of systems: As per history of present illness and below otherwise all systems reviewed and negative. Past medical history: As per history of present illness and as reviewed below otherwise noncontributory. Surgical history: As per history of present illness and as reviewed below otherwise noncontributory. Social history: No reported history of drug or alcohol abuse. Family history: As per history of present illness and as reviewed below otherwise noncontributory. Physical exam: General: Patient sitting comfortably in no acute distress and nontoxic appearing HEENT: Atraumatic, normocephalic, pupils reactive, negative for conjunctival pallor or scleral icterus, mucous membranes moist, throat clear, neck supple, nontender, trachea midline. No meningeal signs. Lungs: Clear to auscultation, breath sounds equal bilaterally, chest nontender. Heart: S1S2, regular, negative for clicks, rubs, or overt murmur. Abdomen: Soft, nondistended, nontender. Negative for masses or hepatosplenomegaly. Negative for costovertebral tenderness. No rigidity, rebound , guarding. Pelvis: Stable nontender. Genitourinary: Deferred. Rectal: Deferred. Extremities: Atraumatic, negative for cords or calf pain. Neurovascular unremarkable. Neuro: Awake, alert, oriented. Cranial nerves II through XII unremarkable. Cerebellum unremarkable. Motor and sensory unremarkable throughout. Exam nonfocal. Notes: troponin and EKG are unremarkable. Patient was offered admission for observation as this is how he presented with KS in the past. He declined admission at this time and understands my concerns and risks of possible ACS. He was advised to return to ED if any new or worsening symptoms. Diagnostics: CBC, CMP, troponin, EKG, CXR, PT/INR Therapeutics: [] Prescriptions: Impression: Left arm pain Plan: Follow up with primary care provider Return to ED as needed as discussed Definitive disposition and diagnosis as appropriate pending reevaluation and review of above. left arm Pain Score (Numeric/FACES): 2 - Related Data Allergies Allergy/AdvReac Type Severity Reaction Status Date / Time No Known Allergies Allergy Verified 01/27/19 21:54 Home Meds: Home Meds Carvedilol 25 mg PO BID 08/07/13 [History] Diltiazem [Tiazac] 180 mg PO BID 08/07/13 [History] Levothyroxine [Sythroid] 100 mcg PO DAILY 08/07/13 [History] Omeprazole 20 mg PO DAILY 08/23/14 [History] atorvaSTATin [Lipitor] 20 mg PO DAILY 08/23/14 [History] Nitroglycerin [Nitrostat] 0.4 mg SL Q5M PRN 05/06/15 [History] Warfarin [Coumadin] 0 mg PO DAILY 05/06/15 [History] Fluticasone Propionate [Flonase Allergy Relief] 2 spray NASBOTH ASDIRECTED PRN 02/03/17 [History] Furosemide 40 mg PO ASDIRECTED 02/03/17 [History] Ipratropium/Albuterol Sulfate [Combivent Respimat Inhal [place]] 1 puff INH QID PRN 02/03/17 [History] Latanoprost [Xalatan 0.005% Ophth Soln] 1 drop EYEBOTH DAILY 02/03/17 [History] Potassium Chloride 8 meq PO DAILY 02/03/17 [History] Zolpidem [Ambien] 10 mg PO BEDTIME PRN 02/03/17 [History] Bumetanide 1 mg PO ASDIRECTED 01/27/19 [History] Mirtazapine [Remeron] 30 mg PO BEDTIME 01/27/19 [History] Past Medical History HEENT History: Reports: Glaucoma Other HEENT History: wears glasses, has 2 upper permanent false teeth Cardiovascular History: Reports: Afib, High Cholesterol, Hypertension, KS, Pacemaker Other Cardiovascular History: heart attack in 1998 Respiratory History: Reports: COPD Other Respiratory History: on inhaler Gastrointestinal History: Reports: GERD Endocrine/Metabolic History: Reports: Hypothyroidism, Obesity/BMI 30+ Hematologic History: Reports: Blood Transfusion(s) - Infectious Disease History Infectious Disease History: Reports: Hepatitis C - Past Surgical History Head Surgeries/Procedures: Reports: None HEENT Surgical History: Reports: None Cardiovascular Surgical History: Reports: AICD, Coronary Artery Bypass, Pacer Other Cardiovascular Surgeries/Procedures: CABG, 4 vessel in late , has implanted pacemaker/defibrillator placed 2016 (revised 3x-last revised in 2009) Respiratory Surgical History: Reports: None GI Surgical History: Reports: None Endocrine Surgical History: Reports: None Social & Family History - Family History Family Medical History: Noncontributory Cardiac: Reports: Hypertension, KS, Other (See Below) Other Cardiac Family History: heart disease Endocrine/Metabolic: Reports: Diabetes, type II - Caffeine Use Caffeine Use: Reports: None Review of Systems - Review of Systems Review Of Systems: ROS reveals no pertinent complaints other than HPI. ED EXAM, GENERAL - Physical Exam Exam: See Below (see dictation) Course - Vital Signs Last Recorded V/S: Last Vital Signs Temp 97 F 01/29/19 20:20 Pulse 71 01/29/19 20:20 Resp 18 01/29/19 20:20 BP 127/79 01/29/19 20:20 Pulse Ox 94 L 01/29/19 20:20 - Orders/Labs/Meds Orders: Active Orders 24 hr Category Date Time Status Cardiac Monitoring [RC] . DIRECTED Care 01/29/19 20:32 Active EKG Documentation Completion [RC] STAT Care 01/29/19 20:32 Active Sodium Chloride 0.9% [Saline Flush] Med 01/29/19 20:32 Active 10 ml FLUSH ASDIRECTED PRN Sodium Chloride 0.9% [Saline Flush] Med 01/29/19 20:32 Active 2.5 ml FLUSH ASDIRECTED PRN Saline Lock Insert [OM.PC] Stat Oth 01/29/19 20:32 Ordered Medication Orders Sodium Chloride (Saline Flush) 10 ml FLUSH ASDIRECTED PRN PRN Reason: Keep Vein Open Sodium Chloride (Saline Flush) 2.5 ml FLUSH ASDIRECTED PRN PRN Reason: Keep Vein Open Labs: Laboratory Tests 01/29/19 01/29/19 01/29/19 Range/Units 20:25 20:25 20:25 WBC 7.56 (4.0-11.0) K/uL RBC 5.42 (4.50-5.90) M/uL Hgb 17.3 H (13.0-17.0) g/dL Hct 48.5 (38.0-50.0) % MCV 89.5 (80.0-98.0) fL MCH 31.9 (27.0-32.0) pg MCHC 35.7 (31.0-37.0) g/dL RDW Std Deviation 44.4 (28.0-62.0) fl RDW Coeff of Jenna 14 (11.0-15.0) % Plt Count 114 L (150-400) K/uL MPV 9.90 (7.40-12.00) fL Neut % (Auto) 58.5 (48.0-80.0) % Lymph % (Auto) 32.1 (16.0-40.0) % [place] % (Auto) 7.4 (0.0-15.0) % Eos % (Auto) 1.7 (0.0-7.0) % Baso % (Auto) 0.3 (0.0-1.5) % Neut # (Auto) 4.4 (1.4-5.7) K/uL Lymph # (Auto) 2.4 (0.6-2.4) K/uL [place] # (Auto) 0.6 (0.0-0.8) K/uL Eos # (Auto) 0.1 (0.0-0.7) K/uL Baso # (Auto) 0.0 (0.0-0.1) K/uL Nucleated RBC % 0.0 /100WBC Nucleated RBCs # 0 K/uL INR 2.45 Sodium 137 (136-148) mmol/L Potassium 4.0 (3.5-5.1) mmol/L Chloride 103 (98-107) mmol/L Carbon Dioxide 25.7 (21.0-32.0) mmol/L BUN 17 (7.0-18.0) mg/dL Creatinine 1.1 (0.8-1.3) mg/dL Est Cr Clr Drug Dosing TNP Estimated GFR (MDRD) > 60.0 ml/min Glucose 120 H (74-106) mg/dL Calcium 9.0 (8.5-10.1) mg/dL Total Bilirubin 0.7 (0.2-1.0) mg/dL AST 39 H (15-37) IU/L ALT 44 (14-63) IU/L Alkaline Phosphatase 86 (46-116) U/L Troponin I < 0.050 (0.000-0.056) ng/mL Total Protein 7.9 (6.4-8.2) g/dL Albumin 3.4 (3.4-5.0) g/dL Globulin 4.5 H (2.6-4.0) g/dL Albumin/Globulin Ratio 0.8 L (0.9-1.6) Meds: Medications Generic Name Dose Route Start Last Admin Trade Name Freq PRN Reason Stop Dose Admin Sodium Chloride 10 ml 01/29/19 20:32 Saline Flush FLUSH ASDIRECTED PRN Keep Vein Open Sodium Chloride 2.5 ml 01/29/19 20:32 Saline Flush FLUSH ASDIRECTED PRN Keep Vein Open Departure - Departure Time of Disposition: 21:24 Disposition: Home, Self-Care 01 Condition: Good Clinical Impression: Left arm pain - Discharge Information Referrals: PCP,None [Primary Care Provider] - Forms: ED Department Discharge Additional Instructions: The following information is given to patients seen in the emergency department who are being discharged to home. This information is to outline your options for follow-up care. We provide all patients seen in our emergency department with a follow-up referral. The need for follow-up, as well as the timing and circumstances, are variable depending upon the specifics of your emergency department visit. If you don't have a primary care physician on staff, we will provide you with a referral. We always advise you to contact your personal physician following an emergency department visit to inform them of the circumstance of the visit and for follow-up with them and/or the need for any referrals to a consulting specialist. The emergency department will also refer you to a specialist when appropriate. This referral assures that you have the opportunity for follow-up care with a specialist. All of these measure are taken in an effort to provide you with optimal care, which includes your follow-up. Under all circumstances we always encourage you to contact your private physician who remains a resource for coordinating your care. When calling for follow-up care, please make the office aware that this follow-up is from your recent emergency room visit. If for any reason you are refused follow-up, please contact the [facility] at and asked to speak to the emergency department charge nurse. [facility] [address] [place] [id number] [facility] [address] [place] [id number] Follow up with primary care provider and collections agent Return to ED as needed as discussed - My Orders Last 24 Hours: My Active Orders 01/29/19 20:32 Cardiac Monitoring [RC] . DIRECTED EKG Documentation Completion [RC] STAT Sodium Chloride 0.9% [Saline Flush] 10 ml FLUSH ASDIRECTED PRN Sodium Chloride 0.9% [Saline Flush] 2.5 ml FLUSH ASDIRECTED PRN Saline Lock Insert [OM.PC] Stat - Assessment/Plan Last 24 Hours: My Active Orders 01/29/19 20:32 Cardiac Monitoring [RC] . DIRECTED EKG Documentation Completion [RC] STAT Sodium Chloride 0.9% [Saline Flush] 10 ml FLUSH ASDIRECTED PRN Sodium Chloride 0.9% [Saline Flush] 2.5 ml FLUSH ASDIRECTED PRN Saline Lock Insert [OM.PC] Stat
[2019-01-29 21:03] LABS: BLOOD UREA NITROGEN,BUN 17 mg/dL (7.0-18.0); CARBON DIOXIDE,CO2 25.7 mmol/L (21.0-32.0); CHLORIDE,CL 103 mmol/L (98-107); GLUCOSE RANDOM 120 mg/dL (74-106); SODIUM,NA 137 mmol/L (136-148)
--- NOTE | 2019-01-29 21:19 | CR ---
INDICATION: Chest pain TECHNIQUE: Chest 1 view. COMPARISON: 01/27/2019 FINDINGS: Cardiovascular and mediastinum: Heart size and vasculature are normal in caliber and appearance. Mediastinum is within normal limits. Sternotomy wires, mediastinal clips and left-sided transvenous pacer device. Lungs and pleural space: Lungs are clear. No sign of infiltrate or mass. No sign of pleural effusion. No pneumothorax. Bones and soft tissues: No significant findings. IMPRESSION: Unremarkable chest. No acute pulmonary or cardiac abnormalities. Dictated by Vikram Alanis MD @ 01/29/2019 9:17:19 PM Dictated by: Vikram Alanis MD @ 01/29/2019 21:17:26 (Electronically Signed)
[2019-01-29 21:55] VITALS: BP 127/82; PULSE 70
== END 2019-01-29 21:52 | disposition home or self-care (01) ==
LOC: MW.ED 20:10
DX: M79.602 Pain in left arm (principal); I10 Essential (primary) hypertension; I25.2 Old myocardial infarction; E03.9 Hypothyroidism, unspecified; K21.9 Gastro-esophageal reflux disease without esophagitis; I48.91 Unspecified atrial fibrillation; E78.00 Pure hypercholesterolemia, unspecified; J44.9 Chronic obstructive pulmonary disease, unspecified; H40.9 Unspecified glaucoma; E66.9 Obesity, unspecified; Z95.1 Presence of aortocoronary bypass graft; Z79.899 Other long term (current) drug therapy; Z79.890 Hormone replacement therapy; Z79.01 Long term (current) use of anticoagulants; Z95.810 Presence of automatic (implantable) cardiac defibrillator
CPT/HCPCS: 36415; 71045; 71045-26; 80053; 84484; 85025; 85610; 93005; 99283; 99283-25

== ENCOUNTER 2021-05-23 09:31 | Day surgery (SDC) | payer MEDICARE, OTHER ==
[2021-05-23] MEDS ORDERED: Propofol 200 MG/20 ML SDV ONE ×3 (11:14→12:01)
[2021-05-23] MEDS ORDERED: fentaNYL 100 MCG/2 ML SDV ONE ×2 (11:15→11:45)
[2021-05-23] MEDS ORDERED: Lidocaine 2% 5 ML SDV ONE (11:16)
[2021-05-23] MEDS ORDERED: Lactated Ringers 1,000 ML IV SCH (12:30)
[2021-05-23 12:54] VITALS: BP 103/69; PULSE 50
== END 2021-05-23 12:55 | disposition home or self-care (01) ==
LOC: MW.SDS 09:31
PROVIDERS: ATTEND Surgery
DX: D12.8 Benign neoplasm of rectum (principal); R63.4 Abnormal weight loss; K29.50 Unspecified chronic gastritis without bleeding; K31.89 Other diseases of stomach and duodenum; K22.10 Ulcer of esophagus without bleeding; I25.2 Old myocardial infarction; F17.210 Nicotine dependence, cigarettes, uncomplicated; I48.20 Chronic atrial fibrillation, unspecified; I50.9 Heart failure, unspecified; I11.0 Hypertensive heart disease with heart failure; E03.9 Hypothyroidism, unspecified; E78.00 Pure hypercholesterolemia, unspecified; Z79.899 Other long term (current) drug therapy; Z79.01 Long term (current) use of anticoagulants; Z98.890 Other specified postprocedural states
CPT/HCPCS: 43239; 45385; 88305; 88342; J2704; J3010; J7120; 00813

== ENCOUNTER 2022-10-11 13:48 | Emergency (ER) | payer MEDICARE, OTHER ==
[2022-10-11 14:36] VITALS: BP 147/96; PULSE 77
== END 2022-10-11 14:36 | disposition home or self-care (01) ==
LOC: MW.ED 13:48
DX: A69.20 Lyme disease, unspecified (principal); E78.00 Pure hypercholesterolemia, unspecified; K21.9 Gastro-esophageal reflux disease without esophagitis; E03.9 Hypothyroidism, unspecified; J44.9 Chronic obstructive pulmonary disease, unspecified; I10 Essential (primary) hypertension; E11.9 Type 2 diabetes mellitus without complications; I48.91 Unspecified atrial fibrillation; I25.2 Old myocardial infarction; E66.9 Obesity, unspecified; Z68.31 Body mass index [BMI] 31.0-31.9, adult; Z95.1 Presence of aortocoronary bypass graft; Z95.810 Presence of automatic (implantable) cardiac defibrillator; Z79.01 Long term (current) use of anticoagulants; Z79.899 Other long term (current) drug therapy
CPT/HCPCS: 99281; 99283

== ENCOUNTER 2022-11-30 23:44 | Emergency (ER) | payer MEDICARE, OTHER ==
[2022-11-30 23:52] VITALS: BP 157/109; PULSE 84
[2022-12-01] MEDS ORDERED: Acetaminophen/oxyCODONE 325-5 MG Tab PO ONE (00:26)
== END 2022-12-01 00:53 | disposition home or self-care (01) ==
LOC: MW.ED 23:44
DX: S00.03XA Contusion of scalp, initial encounter (principal); S00.31XA Abrasion of nose, initial encounter; I48.91 Unspecified atrial fibrillation; I10 Essential (primary) hypertension; K21.9 Gastro-esophageal reflux disease without esophagitis; E78.00 Pure hypercholesterolemia, unspecified; E03.9 Hypothyroidism, unspecified; I25.2 Old myocardial infarction; E66.9 Obesity, unspecified; Z68.30 Body mass index [BMI] 30.0-30.9, adult; Z79.01 Long term (current) use of anticoagulants; Z79.899 Other long term (current) drug therapy; W01.0XXA Fall on same level from slipping, tripping and stumbling without subsequent striking against object, initial encounter
CPT/HCPCS: 70450; 72125; 99284; A9270; 99283

== ENCOUNTER 2022-12-07 12:46 | Emergency (ER) | payer MEDICARE, OTHER ==
[2022-12-07 14:02] LABS: INR 1.82 (0.86-1.11)
[2022-12-07 14:11] LABS: CARBON DIOXIDE,CO2 28.7 mmol/L (21.0-32.0); EST CRCL DRUG DOSING (CG) 70.97 mL/min; POTASSIUM,K 5.1 mmol/L (3.5-5.1)
[2022-12-07 14:41] VITALS: BP 142/96; PULSE 81
== END 2022-12-07 14:40 | disposition home or self-care (01) ==
LOC: MW.ED 12:46
DX: S00.11XA Contusion of right eyelid and periocular area, initial encounter (principal); D69.6 Thrombocytopenia, unspecified; I48.91 Unspecified atrial fibrillation; E78.00 Pure hypercholesterolemia, unspecified; I10 Essential (primary) hypertension; I25.2 Old myocardial infarction; Z95.5 Presence of coronary angioplasty implant and graft; E03.9 Hypothyroidism, unspecified; Z79.01 Long term (current) use of anticoagulants; Z95.1 Presence of aortocoronary bypass graft; Z79.899 Other long term (current) drug therapy; W22.8XXA Striking against or struck by other objects, initial encounter; W19.XXXA Unspecified fall, initial encounter
CPT/HCPCS: 36415; 80048; 85049; 85610; 99283

== ENCOUNTER 2023-08-06 12:27 | Emergency (ER) | payer MEDICARE, OTHER ==
[2023-08-06] MEDS: Sodium Chloride 0.9% 2.5 ML Syringe FLUSH PRN (12:55)
[2023-08-06] MEDS: Sodium Chloride 0.9% 10 ML Syringe FLUSH PRN (12:55)
[2023-08-06] MEDS: Sodium Chloride 0.9% 500 ML IV SCH (12:55)
[2023-08-06 12:59] LABS: BASOPHILS ABSOLUTE AUTO 0.02 K/uL (0.00-0.20); BASOPHILS PERCENT AUTO 0.5 % (0.0-1.0); EOSINOPHILS ABSOLUTE AUTO 0.11 K/uL (0.00-0.45); EOSINOPHILS PERCENT AUTO 2.6 % (0.0-6.0); HEMATOCRIT 39.2 % (42.0-52.0); HEMOGLOBIN 14.1 g/dL (14.0-18.0); IMMATURE GRAN ABSOLUTE AUTO 0.01 K/uL (0.00-0.05); IMMATURE GRAN PERCENT AUTO 0.2 % (0.0-0.4); LYMPHOCYTES ABSOLUTE AUTO 1.41 K/uL (1.00-4.80); LYMPHOCYTES PERCENT AUTO 32.9 % (24.0-44.0); MEAN CORPUSCULAR VOLUME 91.8 fL (83.0-99.0); MEAN PLATELET VOLUME 10.8 fL (9.4-12.4); MONOCYTES ABSOLUTE AUTO 0.37 K/uL (0.00-0.80); MONOCYTES PERCENT AUTO 8.6 % (0.0-8.0); NEUTROPHILS ABSOLUTE AUTO 2.36 K/uL (1.80-7.70); NEUTROPHILS PERCENT AUTO 55.2 % (41.0-71.0); PLATELET COUNT,PLT 93 K/uL (150-400); RED BLOOD CELL COUNT 4.27 M/uL (4.52-5.90); WHITE BLOOD CELL COUNT,WBC 4.28 K/uL (3.9-11.3)
[2023-08-06 13:03] LABS: INR 2.08 (0.86-1.11)
[2023-08-06 13:26] LABS: A/G RATIO 0.7 (0.9-1.6); ALBUMIN 2.8 g/dL (3.4-5.0); BILIRUBIN TOTAL 0.8 mg/dL (0.2-1.0); CALCIUM 8.7 mg/dL (8.5-10.1); CARBON DIOXIDE,CO2 26.6 mmol/L (21.0-32.0); CREATININE 1.3 mg/dL (0.8-1.3); EST CRCL DRUG DOSING (CG) 45.34 mL/min; MAGNESIUM 1.5 mg/dL (1.8-2.4); TSH ULTRASENSITIVE 0.95 uIU/mL (0.36-3.74)
[2023-08-06] MEDS ORDERED: Magnesium Sulfate (4.06 MEQ/ML) 5 GM/10 ML SDV IV STA (14:00)
[2023-08-06] MEDS: Magnesium Sulfate/Water 2 GM in Premix Bag 1 BAG IV ONE (14:33)
[2023-08-06 15:18] VITALS: BP 134/91; PULSE 79
== END 2023-08-06 15:17 | disposition home or self-care (01) ==
LOC: MW.ED 12:27
DX: R55 Syncope and collapse (principal); I10 Essential (primary) hypertension; I25.2 Old myocardial infarction; I48.91 Unspecified atrial fibrillation; E03.9 Hypothyroidism, unspecified; K21.9 Gastro-esophageal reflux disease without esophagitis; J44.9 Chronic obstructive pulmonary disease, unspecified; Z95.1 Presence of aortocoronary bypass graft; Z75.8 Other problems related to medical facilities and other health care; Z79.899 Other long term (current) drug therapy; Z79.01 Long term (current) use of anticoagulants; Z95.0 Presence of cardiac pacemaker; Z95.5 Presence of coronary angioplasty implant and graft
CPT/HCPCS: 36415; 71045; 80053; 82947; 83735; 83880; 84443; 84484; 85025; 85610; 93005; 96361; 96365; 99285; J3475; J3490; J7040; 93010; 99282

== ENCOUNTER 2023-12-04 11:19 | Emergency (ER) | payer MEDICARE, OTHER ==
[2023-12-04 12:57] VITALS: BP 151/103; PULSE 89
[2023-12-04] MEDS: Ondansetron 4 MG Tab.DIS PO STA (12:57)
[2023-12-04 13:01] LABS: CORONAVIRUS COVID-19 NAA POSITIVE (NEGATIVE); INFLUENZA A NAA NEGATIVE (NEGATIVE); INFLUENZA B NAA NEGATIVE (NEGATIVE)
== END 2023-12-04 13:20 | disposition home or self-care (01) ==
LOC: MW.ED 11:19
DX: U07.1 COVID-19 (principal); I10 Essential (primary) hypertension; I25.2 Old myocardial infarction; E78.00 Pure hypercholesterolemia, unspecified; I48.91 Unspecified atrial fibrillation; J44.9 Chronic obstructive pulmonary disease, unspecified; K21.9 Gastro-esophageal reflux disease without esophagitis; E66.9 Obesity, unspecified; E03.9 Hypothyroidism, unspecified; Z95.0 Presence of cardiac pacemaker; Z95.5 Presence of coronary angioplasty implant and graft; Z95.1 Presence of aortocoronary bypass graft; Z79.890 Hormone replacement therapy; Z79.899 Other long term (current) drug therapy; Z79.01 Long term (current) use of anticoagulants; Z75.8 Other problems related to medical facilities and other health care; Z68.29 Body mass index [BMI] 29.0-29.9, adult
CPT/HCPCS: 0240U; 87651; 99283; A9270

== ENCOUNTER 2024-01-07 23:40 | Observation (INO) | payer MEDICARE, OTHER ==
[2024-01-08] MEDS: Sodium Chloride 0.9% 1,000 ML IV STA (00:28)
[2024-01-08] MEDS: Sodium Chloride 0.9% 2.5 ML Syringe FLUSH PRN (00:28)
[2024-01-08] MEDS: Sodium Chloride 0.9% 10 ML Syringe FLUSH PRN (00:28)
[2024-01-08] MEDS: Ondansetron 4 MG/2 ML SDV IVPUSH ONE (00:36)
[2024-01-08 00:59] LABS: BASOPHILS ABSOLUTE AUTO 0.03 K/uL (0.00-0.20); BASOPHILS PERCENT AUTO 0.6 % (0.0-1.0); EOSINOPHILS ABSOLUTE AUTO 0.13 K/uL (0.00-0.45); EOSINOPHILS PERCENT AUTO 2.4 % (0.0-6.0); HEMATOCRIT 36.7 % (42.0-52.0); HEMOGLOBIN 13.1 g/dL (14.0-18.0); IMMATURE GRAN ABSOLUTE AUTO 0.03 K/uL (0.00-0.05); IMMATURE GRAN PERCENT AUTO 0.6 % (0.0-0.4); LYMPHOCYTES ABSOLUTE AUTO 1.15 K/uL (1.00-4.80); LYMPHOCYTES PERCENT AUTO 21.3 % (24.0-44.0); MEAN CORPUSCULAR HEMOGLOBIN 33.2 pg (28.0-32.0); MEAN CORPUSCULAR HGB CONC 35.7 g/dL (32.0-36.0); MEAN CORPUSCULAR VOLUME 92.9 fL (83.0-99.0); MEAN PLATELET VOLUME 10.9 fL (9.4-12.4); MONOCYTES ABSOLUTE AUTO 0.41 K/uL (0.00-0.80); MONOCYTES PERCENT AUTO 7.6 % (0.0-8.0); NEUTROPHILS ABSOLUTE AUTO 3.64 K/uL (1.80-7.70); NEUTROPHILS PERCENT AUTO 67.5 % (41.0-71.0); RED BLOOD CELL COUNT 3.95 M/uL (4.52-5.90); WHITE BLOOD CELL COUNT,WBC 5.39 K/uL (3.9-11.3)
[2024-01-08 01:04] LABS: ALBUMIN 2.6 g/dL (3.4-5.0); CALCIUM 8.1 mg/dL (8.5-10.1); CARBON DIOXIDE,CO2 27.6 mmol/L (21.0-32.0); CREATININE 1.4 mg/dL (0.8-1.3); EST CRCL DRUG DOSING (CG) 41.49 mL/min; POTASSIUM,K 3.4 mmol/L (3.5-5.1); PROTEIN TOTAL,TP 7.1 g/dL (6.4-8.2)
[2024-01-08 01:05] LABS: A/G RATIO 0.6 (0.9-1.6); BILIRUBIN TOTAL 1.8 mg/dL (0.2-1.0)
[2024-01-08 01:06] LABS: LACTIC ACID 1.7 mmol/L (0.4-2.0)
[2024-01-08 01:21] LABS: PLATELET COUNT,PLT 81 K/uL (150-400)
[2024-01-08 01:30] LABS: BILIRUBIN,URINE NEGATIVE (NEGATIVE); COLOR,URINE YELLOW; GLUCOSE,URINE NEGATIVE (NEGATIVE); KETONES,URINE NEGATIVE (NEGATIVE); LEUKOCYTE ESTERASE,URINE NEGATIVE (NEGATIVE); NITRITE,URINE NEGATIVE (NEGATIVE); OCCULT BLOOD,URINE MODERATE (NEGATIVE); PROTEIN,URINE NEGATIVE (NEGATIVE)
[2024-01-08] MEDS: Iopamidol 755 MG/ML 500 ML Multipack Bottle IVPUSH ONE (01:32)
[2024-01-08 02:04] LABS: APPEARANCE,URINE HAZY
[2024-01-08 02:09] LABS: BACTERIA,URINE RARE (NEGATIVE); EPITHELIAL CELLS,URINE FEW (NONE-FEW); WBC,URINE 0-1 (0-5/HPF)
[2024-01-08 02:32] LABS: CORONAVIRUS COVID-19 NAA POSITIVE (NEGATIVE); INFLUENZA A NAA NEGATIVE (NEGATIVE); INFLUENZA B NAA NEGATIVE (NEGATIVE); RESPIRATORY SYNCYTIAL VIR NAA NEGATIVE (NEGATIVE)
[2024-01-08] MEDS: Zolpidem 5 MG Tab PO ONE (02:54)
[2024-01-08 08:43] LABS: A/G RATIO 0.6 (0.9-1.6); ALBUMIN 2.2 g/dL (3.4-5.0); BILIRUBIN TOTAL 1.8 mg/dL (0.2-1.0); CALCIUM 7.7 mg/dL (8.5-10.1); CARBON DIOXIDE,CO2 23.8 mmol/L (21.0-32.0); CREATININE 1.4 mg/dL (0.8-1.3); EST CRCL DRUG DOSING (CG) 43.04 mL/min; MAGNESIUM 0.8 mg/dL (1.8-2.4); POTASSIUM,K 3.3 mmol/L (3.5-5.1)
[2024-01-08 08:59] LABS: BASOPHILS ABSOLUTE AUTO 0.02 K/uL (0.00-0.20); BASOPHILS PERCENT AUTO 0.3 % (0.0-1.0); EOSINOPHILS ABSOLUTE AUTO 0.01 K/uL (0.00-0.45); EOSINOPHILS PERCENT AUTO 0.1 % (0.0-6.0); HEMATOCRIT 32.9 % (42.0-52.0); HEMOGLOBIN 11.6 g/dL (14.0-18.0); IMMATURE GRAN ABSOLUTE AUTO 0.02 K/uL (0.00-0.05); IMMATURE GRAN PERCENT AUTO 0.3 % (0.0-0.4); LYMPHOCYTES ABSOLUTE AUTO 0.96 K/uL (1.00-4.80); LYMPHOCYTES PERCENT AUTO 12.2 % (24.0-44.0); MEAN CORPUSCULAR VOLUME 93.5 fL (83.0-99.0); MEAN PLATELET VOLUME 10.8 fL (9.4-12.4); MONOCYTES ABSOLUTE AUTO 0.52 K/uL (0.00-0.80); MONOCYTES PERCENT AUTO 6.6 % (0.0-8.0); NEUTROPHILS ABSOLUTE AUTO 6.33 K/uL (1.80-7.70); NEUTROPHILS PERCENT AUTO 80.5 % (41.0-71.0); PLATELET COUNT,PLT 73 K/uL (150-400); RED BLOOD CELL COUNT 3.52 M/uL (4.52-5.90); WHITE BLOOD CELL COUNT,WBC 7.86 K/uL (3.9-11.3)
[2024-01-08 09:00] LABS: MEAN CORPUSCULAR HGB CONC 35.3 g/dL (32.0-36.0)
[2024-01-08] MEDS: Potassium Chloride 20 MEQ Tab.ER PO ONE (10:37)
[2024-01-08] MEDS: Losartan 50 MG Tab PO SCH (10:38)
[2024-01-08] MEDS: Levothyroxine 100 MCG Tab PO SCH (10:38)
[2024-01-08] MEDS: Carvedilol 25 MG Tab PO SCH (12:54)
[2024-01-08] MEDS: Levofloxacin/Dextrose 5%-Water 750 MG in Premix Bag 1 BAG IV SCH (12:56)
[2024-01-08] MEDS: Ciprofloxacin 500 MG Tab PO SCH (13:00)
[2024-01-08] MEDS: Tamsulosin 0.4 MG Cap.ER PO SCH (13:00)
[2024-01-08 14:45] LABS: INR 1.56 (0.86-1.11)
[2024-01-08] MEDS: Zolpidem 5 MG Tab PO PRN (22:25)
[2024-01-08] MEDS: Magnesium Sulfate/Water Premix 2 GM in Premix Bag 1 BAG IV ONE (22:26)
[2024-01-09] MEDS: Acetaminophen 325 MG Tab PO PRN (01:04)
[2024-01-09 05:52] LABS: BASOPHILS ABSOLUTE AUTO 0.02 K/uL (0.00-0.20); BASOPHILS PERCENT AUTO 0.3 % (0.0-1.0); EOSINOPHILS ABSOLUTE AUTO 0.04 K/uL (0.00-0.45); EOSINOPHILS PERCENT AUTO 0.6 % (0.0-6.0); HEMATOCRIT 32.7 % (42.0-52.0); HEMOGLOBIN 11.8 g/dL (14.0-18.0); IMMATURE GRAN ABSOLUTE AUTO 0.03 K/uL (0.00-0.05); IMMATURE GRAN PERCENT AUTO 0.4 % (0.0-0.4); LYMPHOCYTES ABSOLUTE AUTO 1.53 K/uL (1.00-4.80); LYMPHOCYTES PERCENT AUTO 21.8 % (24.0-44.0); MEAN CORPUSCULAR HEMOGLOBIN 34.8 pg (28.0-32.0); MEAN CORPUSCULAR HGB CONC 36.1 g/dL (32.0-36.0); MEAN CORPUSCULAR VOLUME 96.5 fL (83.0-99.0); MEAN PLATELET VOLUME 10.4 fL (9.4-12.4); MONOCYTES ABSOLUTE AUTO 0.54 K/uL (0.00-0.80); MONOCYTES PERCENT AUTO 7.7 % (0.0-8.0); NEUTROPHILS ABSOLUTE AUTO 4.85 K/uL (1.80-7.70); NEUTROPHILS PERCENT AUTO 69.2 % (41.0-71.0); PLATELET COUNT,PLT 80 K/uL (150-400); RED BLOOD CELL COUNT 3.39 M/uL (4.52-5.90); WHITE BLOOD CELL COUNT,WBC 7.01 K/uL (3.9-11.3)
[2024-01-09 06:13] LABS: A/G RATIO 0.6 (0.9-1.6); ALBUMIN 2.3 g/dL (3.4-5.0); BILIRUBIN TOTAL 2.2 mg/dL (0.2-1.0); CARBON DIOXIDE,CO2 26.1 mmol/L (21.0-32.0); CREATININE 1.4 mg/dL (0.8-1.3); EST CRCL DRUG DOSING (CG) 43.04 mL/min; MAGNESIUM 1.3 mg/dL (1.8-2.4); POTASSIUM,K 3.8 mmol/L (3.5-5.1); PROTEIN TOTAL,TP 6.3 g/dL (6.4-8.2)
[2024-01-09] MEDS: Magnesium Sulfate/Water Premix 2 GM in Premix Bag 1 BAG IV ONE ×2 (10:26→10:29)
[2024-01-09 14:01] VITALS: BP 142/85; PULSE 87
== END 2024-01-09 12:55 | disposition home or self-care (01) ==
LOC: MW.ED 23:40 → MW.MS 01-08 02:33
PROVIDERS: ADMIT Family Medicine; ATTEND Family Medicine
DX: N41.9 Inflammatory disease of prostate, unspecified (principal); R16.1 Splenomegaly, not elsewhere classified; E87.6 Hypokalemia; I10 Essential (primary) hypertension; E78.00 Pure hypercholesterolemia, unspecified; J44.9 Chronic obstructive pulmonary disease, unspecified; E83.42 Hypomagnesemia; K21.9 Gastro-esophageal reflux disease without esophagitis; E03.9 Hypothyroidism, unspecified; I48.91 Unspecified atrial fibrillation; Z79.82 Long term (current) use of aspirin; Z79.01 Long term (current) use of anticoagulants; Z79.899 Other long term (current) drug therapy
CPT/HCPCS: 0241U; 36415; 74177; 80053; 81001; 83605; 83735; 85025; 85610; 87040; 96361; 96365; 96366; 96367; 96375; 99285; A9270; G0378; J1956; J2405; J3475; J3490; J7030; Q9967; 96374

== ENCOUNTER 2024-04-03 15:01 | Emergency (ER) | payer MEDICARE, OTHER ==
[2024-04-03] MEDS ORDERED: Sodium Chloride 0.9% 2.5 ML Syringe FLUSH PRN (15:08)
[2024-04-03] MEDS ORDERED: Sodium Chloride 0.9% 10 ML Syringe FLUSH PRN (15:08)
[2024-04-03 15:35] LABS: BASOPHILS ABSOLUTE AUTO 0.04 K/uL (0.00-0.20); BASOPHILS PERCENT AUTO 0.8 % (0.0-1.0); EOSINOPHILS ABSOLUTE AUTO 0.16 K/uL (0.00-0.45); EOSINOPHILS PERCENT AUTO 3.3 % (0.0-6.0); HEMOGLOBIN 10.4 g/dL (14.0-18.0); IMMATURE GRAN ABSOLUTE AUTO 0.01 K/uL (0.00-0.05); IMMATURE GRAN PERCENT AUTO 0.2 % (0.0-0.4); LYMPHOCYTES ABSOLUTE AUTO 1.16 K/uL (1.00-4.80); LYMPHOCYTES PERCENT AUTO 23.8 % (24.0-44.0); MEAN CORPUSCULAR HEMOGLOBIN 36.5 pg (28.0-32.0); MEAN CORPUSCULAR HGB CONC 35.9 g/dL (32.0-36.0); MEAN CORPUSCULAR VOLUME 101.8 fL (83.0-99.0); MEAN PLATELET VOLUME 9.5 fL (9.4-12.4); MONOCYTES ABSOLUTE AUTO 0.42 K/uL (0.00-0.80); MONOCYTES PERCENT AUTO 8.6 % (0.0-8.0); NEUTROPHILS ABSOLUTE AUTO 3.08 K/uL (1.80-7.70); NEUTROPHILS PERCENT AUTO 63.3 % (41.0-71.0); PLATELET COUNT,PLT 87 K/uL (150-400); RED BLOOD CELL COUNT 2.85 M/uL (4.52-5.90); WHITE BLOOD CELL COUNT,WBC 4.87 K/uL (3.9-11.3)
[2024-04-03] MEDS: Tetracaine HCl/PF 0.5% 4 ML Bottle EYERT ONE (15:49)
[2024-04-03 16:08] LABS: A/G RATIO 0.4 (0.9-1.6); ALBUMIN 1.9 g/dL (3.4-5.0); BILIRUBIN TOTAL 3.2 mg/dL (0.2-1.0); CALCIUM 8.1 mg/dL (8.5-10.1); CREATININE 1.3 mg/dL (0.8-1.3); EST CRCL DRUG DOSING (CG) 46.35 mL/min; POTASSIUM,K 3.3 mmol/L (3.5-5.1); PROTEIN TOTAL,TP 6.6 g/dL (6.4-8.2)
[2024-04-03 16:52] LABS: APPEARANCE,URINE SLT CLOUDY; COLOR,URINE YELLOW; GLUCOSE,URINE NEGATIVE (NEGATIVE); KETONES,URINE NEGATIVE (NEGATIVE); LEUKOCYTE ESTERASE,URINE TRACE (NEGATIVE); NITRITE,URINE NEGATIVE (NEGATIVE); OCCULT BLOOD,URINE NEGATIVE (NEGATIVE); PH,URINE 5.5 (5.0-8.0); PROTEIN,URINE TRACE mg/dL (NEGATIVE)
[2024-04-03 16:55] LABS: BILIRUBIN,URINE MODERATE (NEGATIVE)
[2024-04-03 17:01] LABS: CALCIUM OXALATE CRYSTALS,URINE FEW (NEGATIVE); EPITHELIAL CELLS,URINE RARE (NONE-FEW); RBC,URINE NONE SEEN (0-2/HPF); WBC,URINE 0-1 (0-5/HPF)
[2024-04-03 17:02] LABS: AMORPHOUS SEDIMENT,URINE FEW (NEGATIVE); BACTERIA,URINE 1+ (NEGATIVE); MUCUS,URINE LIGHT (NONE-MOD)
[2024-04-03 17:19] LABS: INR 5.4 (0.86-1.11)
[2024-04-03] MEDS: Phytonadione 10 MG in Sodium Chloride 0.9% 50 ML IV ONE (17:29)
[2024-04-03] MEDS ORDERED: niCARdipine/Normal Saline 20 MG in Premix Bag 1 BAG IV SCH (17:45)
[2024-04-03 17:54] VITALS: BP 136/83; PULSE 78
[2024-04-03] MEDS ORDERED: Morphine 4 MG/ML Syringe IVPUSH ONE (18:14)
[2024-04-03] MEDS: hydrALAZINE 20 MG/ML SDV IVPUSH ONE (19:01)
== END 2024-04-03 18:51 ==
LOC: MW.ED 15:01
DX: I62.9 Nontraumatic intracranial hemorrhage, unspecified (principal); R41.0 Disorientation, unspecified; R79.1 Abnormal coagulation profile; J44.9 Chronic obstructive pulmonary disease, unspecified; I48.91 Unspecified atrial fibrillation; I10 Essential (primary) hypertension; E78.00 Pure hypercholesterolemia, unspecified; I25.2 Old myocardial infarction; E03.9 Hypothyroidism, unspecified; K21.9 Gastro-esophageal reflux disease without esophagitis; Z95.1 Presence of aortocoronary bypass graft; Z79.899 Other long term (current) drug therapy; Z79.01 Long term (current) use of anticoagulants; Z79.82 Long term (current) use of aspirin
CPT/HCPCS: 36415; 36430; 70450; 80053; 81001; 82140; 84484; 85025; 85610; 85730; 86850; 86900; 86901; 93005; 96365; 99285; J3430; J3490; P9017